=== PATIENT | female | born 1955 | race Caucasian/White ===

== ENCOUNTER 2021-04-13 00:15 | Emergency (ER) | payer OTHER, MEDICAID ==
[~2021-04-13] VITALS: Ht 157.5 cm; Wt 65.8 kg
[2021-04-13 00:15] VITALS: BP 192/107
--- NOTE | 2021-04-13 00:18 | NUR ---
TO LOBBY A/W BED AMBULATORY
--- NOTE | 2021-04-13 01:01 | NUR ---
PT AMBULATED TO BED 3
[2021-04-13] MEDS: KETOROLAC 60 MG/2 ML VIAL IM ONE (01:37)
--- NOTE | 2021-04-13 01:42 | NUR ---
Dr. Tam examining patient.
[2021-04-13 01:53] LABS: APPEARANCE,URINE CLEAR (CLEAR); BILIRUBIN,URINE NEGATIVE (NEGATIVE); BLOOD, URINE TRACE-I (NEGATIVE); COLOR,URINE YELLOW (YELLOW); LEUKOCYTE ESTERASE ,URINE TRACE (NEGATIVE); NITRITE, URINE NEGATIVE (NEGATIVE); PH,URINE 6.5 (5.0-9.0); UGLUCOSE NEGATIVE (NEGATIVE)
[2021-04-13 02:04] LABS: RBC,URINE 0-5 /HPF (0-5)
[2021-04-13] MEDS ORDERED: IBUP-2213 PO (02:50)
[2021-04-13] MEDS ORDERED: CIPR500T4 PO (02:50)
[2021-04-13 02:58] VITALS: BP 148/69
--- NOTE | 2021-04-13 03:00 | NUR ---
Patient discharged with v/s stable. Written and verbal after care instructions given and explained. Patient verbalized understanding. Ambulatory with steady gait. All questions addressed prior to discharge. Advised to follow up with PMD.
== END 2021-04-13 03:00 | disposition home or self-care (01) ==
LOC: MED 00:15
DX: N39.0 Urinary tract infection, site not specified (principal); R51.9 Headache, unspecified; Z88.0 Allergy status to penicillin; Z90.710 Acquired absence of both cervix and uterus
CPT/HCPCS: 70450; 81001; 87086; 96372; 99284; J1885

== ENCOUNTER 2021-11-11 22:01 | Inpatient (IN) | payer OTHER, MEDICAID ==
[~2021-11-11] VITALS: Ht 157.5 cm; Wt 63.5 kg
[~2021-11-11 22:01] MED LIST: CIPR500T4 PO; IBUP-2213 PO
[2021-11-11 22:08] VITALS: BP 116/56
--- NOTE | 2021-11-11 22:42 | NUR ---
PT TAKEN TO BED 12
--- NOTE | 2021-11-11 22:55 | NUR ---
66 Y.O. F BIBA from home. C/O nausea x today. Patient reported, got COVID-19 vaccine and Pnuemonia vacccine today, after went home, had nausea, no vomiting, vss and EKG -normal at the scence, BS 108. P SAID SHE VOMITED IN THE LOBBY BUT IT WAS JUST SPIT IN THE BAG. DENIES D, SOB, AND CHEST PAIN. PT COMPLAINS OF FULL BODY PAIN. 10/10 PAIN. A&OX4, SKIN INTACT, VITALS WNL, AND GAIT WAS WOBBLY DUE TO PAIN. PMHx: HTN, OA
[2021-11-11] MEDS ORDERED: ONDANSETRON 4 MG/2 ML VIAL IVP ONE (23:00)
[2021-11-11] MEDS ORDERED: NACL 0.9% 1,000 ML IV ONE (23:05)
[2021-11-11] MEDS ORDERED: KETOROLAC 30 MG/ML VIAL IVP ONE (23:15)
[2021-11-11] MEDS ORDERED: HYDROcodone/APAP 5/325 MG 1 TAB TAB PO ONE (23:15)
[2021-11-11 23:29] LABS: BASOPHILS % (AUTO) 0.2 % (0.0-2.0); EOSINOPHILS % (AUTO) 0.3 % (0.0-4.0); HEMATOCRIT 35.8 % (36-48); HEMOGLOBIN 11.9 g/dL (12.0-16.0); LYMPHOCYTES # (AUTO) 0.5 K/uL (2.5-16.5); LYMPHOCYTES % (AUTO) 4.5 % (20.5-51.1); MEAN CORPUSCULAR HEMOGLOBIN 29 pg (27-31); MEAN CORPUSCULAR HGB CONC 33 g/dL (33-37); MEAN CORPUSCULAR VOLUME 87.1 fL (80-94); MONOCYTES # (AUTO) 0.2 K/uL (0.8-1.0); NEUTROPHILS # (AUTO) 11.2 K/uL (1.8-7.7); PLATELET COUNT (AUTO) 210 K/uL (140-450); RED BLOOD CELL COUNT(AUTO) 4.11 MIL/uL (4.20-5.40); RED CELL DISTRIBUTION WIDTH 14.9 % (11.6-13.7)
[2021-11-11 23:43] LABS: ANION GAP 13.7 (8-16); CARBON DIOXIDE 24.8 mmol/L (21-32); CREATININE 1.1 mg/dL (0.6-1.3); POTASSIUM 3.5 mmol/L (3.5-5.1)
[2021-11-12] MEDS ORDERED: NACL 0.9% 1,000 ML IV ONE (02:15)
--- NOTE | 2021-11-12 02:30 | NUR ---
DIONISIO COLLECTED AND HANDED TO ALAN
[2021-11-12] MEDS ORDERED: PRED1TAB2 PO (03:03)
[2021-11-12] MEDS ORDERED: PRED10TA5 PO (03:03)
[2021-11-12] MEDS ORDERED: ATOR20TA PO (03:15)
[2021-11-12] MEDS ORDERED: ESCI20TA PO (03:15)
[2021-11-12] MEDS ORDERED: ATEN50TA8 PO (03:15)
[2021-11-12] MEDS ORDERED: ALPR0.5T2 PO (03:15)
[2021-11-12] MEDS ORDERED: ACET-2619 PO (03:16)
--- NOTE | 2021-11-12 05:37 | NUR ---
URINE COLLECTED AND WALKED TO LAB
[2021-11-12 06:21] LABS: APPEARANCE,URINE CLOUDY (CLEAR); BILIRUBIN,URINE NEGATIVE (NEGATIVE); BLOOD, URINE NEGATIVE (NEGATIVE); COLOR,URINE YELLOW (YELLOW); LEUKOCYTE ESTERASE ,URINE 2+ (NEGATIVE); NITRITE, URINE POSITIVE (NEGATIVE); UGLUCOSE NEGATIVE (NEGATIVE)
[2021-11-12] MEDS: HYDROcodone/APAP 5/325 MG 1 TAB TAB PO PRN ×2 (06:41→14:38)
[2021-11-12 06:53] LABS: CALCIUM OXALATE CRYSTALS,UR None Seen /HPF (None Seen); OTHER CRYSTALS,URINE None Seen /HPF (None Seen); RBC,URINE NONE SEEN /HPF (0-5); TRICHOMONAS,URINE None Seen /HPF (None Seen); TRIPLE PHOSPHATE CRYSTAL,UR None Seen /HPF (None Seen); URIC ACID CRYSTALS,URINE None Seen /HPF (None Seen); WBC,URINE 16-25 (MOD) /HPF (0-5); YEAST,URINE None Seen /HPF (None Seen)
[2021-11-12 06:54] LABS: COARSE GRANULAR CASTS,URINE None Seen /LPF (None Seen); FINE GRANULAR CASTS,URINE None Seen /LPF (None Seen); HYALINE CASTS, URINE None Seen /LPF (None Seen); OTHER CASTS, URINE None Seen /LPF (None Seen); RED BLOOD CELL CASTS,URINE None Seen /LPF (None Seen); URINE AMORPHOUS URATE 1+ /HPF (None Seen); WAXY CASTS,URINE None Seen /LPF (None Seen)
--- NOTE | 2021-11-12 07:19 | NUR ---
Pt report given to HEVER RIBERA. Transfer of care at this time.
[2021-11-12] MEDS ORDERED: ONDANSETRON 4 MG/2 ML VIAL IM/IVP PRN (08:00)
[2021-11-12] MEDS ORDERED: DOCUSATE SODIUM 100 MG GELCAP PO PRN (08:00)
[2021-11-12] MEDS ORDERED: POTASSIUM CHLORIDE 10 MEQ TABER PO PRN (08:00)
[2021-11-12] MEDS ORDERED: ZOLPIDEM 5 MG TAB PO PRN (08:00)
[2021-11-12] MEDS ORDERED: guaiFENesin DM 200/20 MG-10 ML 10 ML UDC PO PRN (08:00)
[2021-11-12] MEDS ORDERED: predniSONE 1 MG TAB PO SCH (08:04)
[2021-11-12] MEDS ORDERED: predniSONE 5 MG TAB PO SCH (08:18)
[2021-11-12] MEDS: NACL 0.9% 1,000 ML IV SCH ×2 (08:51→20:10)
[2021-11-12] MEDS ORDERED: LEVOFLOXACIN 500 MG/D5W PREMIX 100 ML IV SCH (09:00)
--- NOTE | 2021-11-12 09:11 | NUR ---
Pt. awake and orientedx4. Denies any discomfort at this time, Breakfast tray given.
[2021-11-12 09:36] LABS: MAGNESIUM 1.9 mg/dL (1.8-2.4); PHOSPHORUS 4.4 mg/dL (2.5-4.9)
[2021-11-12] MEDS ORDERED: ATORVASTATIN 20 MG TAB ONE (09:51)
[2021-11-12] MEDS ORDERED: atenoloL 25 MG TAB ONE (10:06)
[2021-11-12] MEDS: ESCITALOPRAM 20 MG TAB PO SCH (10:14)
[2021-11-12] MEDS: atenoloL 50 MG TAB PO SCH (10:29)
--- NOTE | 2021-11-12 11:52 | NUR ---
DC [age] YRS OLD FEMALE PATIENT WAS ADMITTED FROM HOME WITH A DX OF VACCINE REACTION, INABILITY TO AMBULATE AND WEAKNESS. PATIENT HAS A HX OF LUPUS AND RA. RAPID COVID TEST NEGATIVE. URINE CULTURE PENDING. ADMINISTERED IVF, IV ABX LEVAQUIN AND CONTINUED HOME MEDS. DC PLAN TO GO HOME WHEN STABLE. CM TO FOLLOW
--- NOTE | 2021-11-12 12:35 | NUR ---
pt. ambulated to BR with no assist
--- NOTE | 2021-11-12 12:47 | NUR ---
Patient will be admitted to care of . Admited to Med/Surg. Will go to room 122A. Belongings list completed. Bedside Report to RAMANA Manzo.
[2021-11-12 12:55] VITALS: BP 115/60
--- NOTE | 2021-11-12 12:55 | NUR ---
RECEIVED PT FROM ER NURSE CRYSTAL. PT WAS WHEELED BY ER NURSE TO MST FLOOR. PT ABLE TO AMBULATE FROM WHEELCHAIR TO HER BED. PT IS A&O4, ABLE TO COMMUNICATE NEEDS. BREATHING EVEN AND UNLABORED ON RA. NO DISTRESS NOTED. SKIN IS INTACT, WARM AND DRY TO TOUCH. IV SITE AT RIGHT THUMB 22G, SALINE LOCK. PT IS CONTINENT. PT ORIENTED TO UNIT, RICHARD AND ROUTINES. MRSA SWAB DONE AND SENT TO LAB. CALL LIGHT WITHIN REACH. SAFETY PRECAUTIONS IN PLACE. WILL CONTINUE TO MONITOR.
--- NOTE | 2021-11-12 14:02 | NUR ---
PT ATE SANDWICH, ABLE TO TOLERATE. NO ABD PAIN NOTED. NO NAUSEA, NO VOMITING. AT BEDSIDE. CALL LIGHT WITHIN REACH. SAFETY PRECAUTIONS IN PLACE. WILL CONTINUE TO MONITOR.
[2021-11-12 15:47] LABS: ANION GAP 11.2 (8-16); CARBON DIOXIDE 23.8 mmol/L (21-32)
[2021-11-12 15:57] LABS: BASOPHILS % (AUTO) 0.1 % (0.0-2.0); EOSINOPHILS % (AUTO) 0.2 % (0.0-4.0); HEMATOCRIT 32.9 % (36-48); HEMOGLOBIN 10.8 g/dL (12.0-16.0); LYMPHOCYTES # (AUTO) 0.7 K/uL (2.5-16.5); LYMPHOCYTES % (AUTO) 4.6 % (20.5-51.1); MEAN CORPUSCULAR HEMOGLOBIN 29 pg (27-31); MEAN CORPUSCULAR HGB CONC 33 g/dL (33-37); MEAN CORPUSCULAR VOLUME 87.6 fL (80-94); MONOCYTES # (AUTO) 0.4 K/uL (0.8-1.0); MONOCYTES % (AUTO) 2.7 % (1.7-9.3); NEUTROPHILS # (AUTO) 13.8 K/uL (1.8-7.7); NEUTROPHILS % (AUTO) 92.4 % (42.2-75.2); PLATELET COUNT (AUTO) 206 K/uL (140-450); RED BLOOD CELL COUNT(AUTO) 3.76 MIL/uL (4.20-5.40); RED CELL DISTRIBUTION WIDTH 15.3 % (11.6-13.7); WHITE BLOOD COUNT (AUTO) 14.9 K/uL (4.8-10.8)
[2021-11-12 16:00] VITALS: BP 113/52
--- NOTE | 2021-11-12 16:08 | NUR ---
ASSISTED PT TO THE REST ROOM. PT ABLE TO AMBULATE, PT STATED SHE FELT TIRED EASILY. NO DISTRESS NOTED. NO SOB. NO DIFFICULTY BREATHING. COLLECTED URINE FOR DRUG SCREEN URINE AND SENT TO LAB.
--- NOTE | 2021-11-12 16:11 | NUR ---
PATIENT HAS BEEN SCREENED AND CATEGORIZED MODERATE NUTRITION RISK. PATIENT WILL BE SEEN WITHIN 3-5 DAYS OF ADMISSION. / [address]
[2021-11-12 16:30] LABS: BARBITURATE, URINE NEGATIVE ng/ml (NEG <=200); BENZODIAZEPINE, URINE POSITIVE ng/mL (NEG <=200); CANNABINOID, URINE NEGATIVE ng/mL (NEG <=50); COCAINE, URINE NEGATIVE ng/mL (NEG <=300)
[2021-11-12 16:31] LABS: OPIATE, URINE POSITIVE ng/mL (NEG <=2000); PHENCYCLIDINE SCREEN,URINE NEGATIVE ng/mL (NEG <=25)
--- NOTE | 2021-11-12 18:20 | NUR ---
P.T. NOTES P.T. EVAL COMPLETED; REFER TO EVAL FOR DETAILS.
--- NOTE | 2021-11-12 19:25 | NUR ---
ENDORSED PT TO ETYMOLOGY PROFESSOR NURSE FOR CONTINUITY OF CARE. ALL NEEDS MET THROUGHOUT SHIFT. PT IS STABLE.
--- NOTE | 2021-11-12 19:30 | NUR ---
RECEIVED PT ON BED, AAOX4, ABLE TO MAKE NEEDS KNOWN, COMPLAINING OF RT ARM PAIN SEC TO ARTHRITIS, WILL MEDICATE PRN, IVF INFUSING WELL, SAFETY MEASURES IN PLACE, CALL LIGHT WITHIN REACH.
[2021-11-12] MEDS: HYDROcodone/APAP 7.5/325 MG 1 TAB PO PRN (19:49)
[2021-11-12 20:00] VITALS: BP 119/63
[2021-11-12] MEDS: ATORVASTATIN 20 MG TAB PO SCH (20:58)
[2021-11-12] MEDS: ALPRAZolam 0.5 MG TAB PO SCH (20:58)
--- NOTE | 2021-11-13 01:00 | NUR ---
PT AMBULATED TO BR WITH STANDBY ASSIST, STEADY GAIT NOTED, VOIDED FREELY, BACK TO BED, COMPLAINING OF RT ARM PAIN, WILL MEDICATE PRN, CONTINUE TO MONITOR CLOSELY.
[2021-11-13] MEDS: HYDROcodone/APAP 7.5/325 MG 1 TAB PO PRN ×2 (01:19→05:46)
[2021-11-13 04:00] VITALS: BP 116/57
[2021-11-13 06:28] LABS: ANION GAP 8.3 (8-16); CARBON DIOXIDE 26.7 mmol/L (21-32); CREATININE 0.8 mg/dL (0.6-1.3)
[2021-11-13 06:46] LABS: BASOPHILS % (AUTO) 0.5 % (0.0-2.0); EOSINOPHILS # (AUTO) 0.2 K/uL (0-0.4); EOSINOPHILS % (AUTO) 2.6 % (0.0-4.0); HEMATOCRIT 29.9 % (36-48); HEMOGLOBIN 9.9 g/dL (12.0-16.0); LYMPHOCYTES % (AUTO) 10.9 % (20.5-51.1); MEAN CORPUSCULAR HEMOGLOBIN 29 pg (27-31); MEAN CORPUSCULAR HGB CONC 33 g/dL (33-37); MEAN CORPUSCULAR VOLUME 88.5 fL (80-94); MONOCYTES # (AUTO) 0.3 K/uL (0.8-1.0); NEUTROPHILS # (AUTO) 7.5 K/uL (1.8-7.7); PLATELET COUNT (AUTO) 206 K/uL (140-450); RED BLOOD CELL COUNT(AUTO) 3.38 MIL/uL (4.20-5.40); RED CELL DISTRIBUTION WIDTH 15.6 % (11.6-13.7)
--- NOTE | 2021-11-13 07:36 | NUR ---
PT AWAKE, NO SIGNS OF DISTRESS, REPORT GIVEN TO HEVER GUARDADO FOR CONTINUITY OF CARE.
--- NOTE | 2021-11-13 07:36 | NUR ---
RECEIVED REPORT FROM NIGHTSHIFT NURSE LISSA FOR CONTINUITY OF CARE. PT IS IN STABLE CONDITION, CURRENTLY AWAKE A/OX4. BREATHING IS EVEN, REGULAR, AND UNLABORED ON ROOM AIR. PT IS CONTINENT OF THE BOWEL AND BLADDER, AND AMBULATORY ON STEADY GAIT. SKIN IS INTACT, NO SIGNS OF DISTRESS NOTED, PT COMPLAINED OF MILD PAIN IN RIGHT SHOULDER AND REQUESTED PRN TYLENOL.
[2021-11-13 08:00] VITALS: BP 131/78
[2021-11-13] MEDS: ACETAMINOPHEN 325 MG TAB PO PRN ×2 (08:37→22:39)
[2021-11-13] MEDS: ESCITALOPRAM 20 MG TAB PO SCH (08:38)
[2021-11-13] MEDS: atenoloL 50 MG TAB PO SCH (08:39)
[2021-11-13] MEDS: LEVOFLOXACIN 250 MG/D5 PREMIX 50 ML IV SCH (08:39)
[2021-11-13] MEDS ORDERED: LEVO-315 PO (10:27)
[2021-11-13] MEDS: predniSONE 5 MG TAB PO SCH (10:33)
[2021-11-13 16:00] VITALS: BP 122/60
[2021-11-13] MEDS: NACL 0.9% 1,000 ML IV SCH (17:39)
--- NOTE | 2021-11-13 19:32 | NUR ---
ENDORSED PT TO NIGHTSNYFT NURSE CHER FOR CONTINUITY OF CARE. PT IN STABLE CONDITION.
[2021-11-13] MEDS: ALPRAZolam 0.5 MG TAB PO SCH (21:22)
[2021-11-13] MEDS: ATORVASTATIN 20 MG TAB PO SCH (21:22)
[2021-11-14] VITALS: BP 135/70
[2021-11-14] MEDS: NACL 0.9% 1,000 ML IV SCH (06:21)
--- NOTE | 2021-11-14 07:05 | NUR ---
RECEIVED REPORT FROM NIGHTSHIFT NURSE CHER FOR CONTINUITY OF CARE. PT IS IN STABLE CONDITION, CURRENTLY SLEEPING A/OX4. BREATHING IS EVEN, REGULAR, AND UNLABORED ON ROOM AIR. PT IS CONTINENT OF THE BOWEL AND BLADDER, AND AMBULATORY ON STEADY GAIT. SKIN IS INTACT, NO SIGNS OF DISTRESS NOTED.
[2021-11-14 07:20] LABS: ANION GAP 11.2 (8-16); CREATININE 0.8 mg/dL (0.6-1.3); POTASSIUM 4.2 mmol/L (3.5-5.1)
[2021-11-14 07:23] LABS: BASOPHILS % (AUTO) 0.2 % (0.0-2.0); EOSINOPHILS # (AUTO) 0.3 K/uL (0-0.4); EOSINOPHILS % (AUTO) 5.2 % (0.0-4.0); LYMPHOCYTES # (AUTO) 1.1 K/uL (2.5-16.5); LYMPHOCYTES % (AUTO) 19.8 % (20.5-51.1); MEAN CORPUSCULAR HEMOGLOBIN 29 pg (27-31); MEAN CORPUSCULAR HGB CONC 33 g/dL (33-37); MEAN CORPUSCULAR VOLUME 87.6 fL (80-94); MONOCYTES # (AUTO) 0.3 K/uL (0.8-1.0); MONOCYTES % (AUTO) 5.4 % (1.7-9.3); NEUTROPHILS # (AUTO) 3.7 K/uL (1.8-7.7); NEUTROPHILS % (AUTO) 69.4 % (42.2-75.2); PLATELET COUNT (AUTO) 191 K/uL (140-450); RED BLOOD CELL COUNT(AUTO) 3.43 MIL/uL (4.20-5.40); RED CELL DISTRIBUTION WIDTH 15.2 % (11.6-13.7); WHITE BLOOD COUNT (AUTO) 5.4 K/uL (4.8-10.8)
[2021-11-14 08:00] VITALS: BP 157/68
[2021-11-14] MEDS: LEVOFLOXACIN 250 MG/D5 PREMIX 50 ML IV SCH (08:17)
[2021-11-14] MEDS: predniSONE 5 MG TAB PO SCH (08:18)
[2021-11-14] MEDS: atenoloL 50 MG TAB PO SCH (08:18)
[2021-11-14] MEDS: ACETAMINOPHEN 325 MG TAB PO PRN (08:20)
--- NOTE | 2021-11-14 08:20 | NUR ---
PT COMPLAINED OF HEADACHE PAIN 11/08. MEDICATED WITH PRN TYLENOL.
[2021-11-14] MEDS: ESCITALOPRAM 20 MG TAB PO SCH (08:26)
[2021-11-14 11:14] VITALS: BP 157/68
--- NOTE | 2021-11-14 12:00 | NUR ---
REVIEWED AND DISCUSSED DISCHARGE INSTRUCTIONS WITH PT. PT VERBALIZED UNDERSTANDING AND WAS ABLE TO SIGN ALL DISCHARGE PAPERWORK. PT WAS TRANSPORTED TO [facility] VIA WHEELCHAIR. TRANSPORTED PT HOME VIA POV. PT IN STABLE CONDITION.
== END 2021-11-14 12:15 | disposition home or self-care (01) | DRG 689 ==
LOC: MED 22:01 → MMU 11-12 02:17 → MTU 11-12 12:34
PROVIDERS: ADMIT Family Medicine; ATTEND Family Medicine
DX: N39.0 Urinary tract infection, site not specified (principal); G93.41 Metabolic encephalopathy; R53.1 Weakness; T50.B95A Adverse effect of other viral vaccines, initial encounter; M06.9 Rheumatoid arthritis, unspecified; M32.9 Systemic lupus erythematosus, unspecified; D50.9 Iron deficiency anemia, unspecified; E78.5 Hyperlipidemia, unspecified; I10 Essential (primary) hypertension; Z20.822 Contact with and (suspected) exposure to COVID-19; R51.9 Headache, unspecified; M25.512 Pain in left shoulder; M25.511 Pain in right shoulder; M25.551 Pain in right hip; M25.552 Pain in left hip; F41.9 Anxiety disorder, unspecified; F32.A Depression, unspecified; Z90.710 Acquired absence of both cervix and uterus; Z88.0 Allergy status to penicillin; Z79.899 Other long term (current) drug therapy; Z90.722 Acquired absence of ovaries, bilateral; Y92.89 Other specified places as the place of occurrence of the external cause
CPT/HCPCS: 36415; 80048; 80305; 81001; 83690; 83735; 83880; 84100; 85025; 87081; 87086; 96361; 96374; 96375; 97163-GP; 99285; J1885; J1956; J2405; J7512